=== PATIENT | female | born 1935 | race Caucasian/White ===

== ENCOUNTER → 2016-05-30 09:57 | Outpatient (CLI) | payer MEDICARE ==
[2016-03-15 06:54] VITALS: BMI 16.6
[~2016-05-30 09:57] MED LIST: ASPIRIN81 MG PO; CARAFATE1 G PO; EFFIENT10 MG PO; EXFORGE 10-3201 TAB PO; FAMOTIDINE10 MG PO; FERROUS SULFAT325 MG PO; LOPRESSOR25 MG PO; OMEPRAZOLE20 M1 PO; PLAVIX75 MG PO; VITAMIN B-1000 MCG/M IM; XALATAN 0.0052.5 ML EACH EYE; ZOCOR20 MG PO
== END | disposition home or self-care (01) ==
LOC: D.CT 09:57
DX: I65.29 Occlusion and stenosis of unspecified carotid artery (principal)

== ENCOUNTER 2017-02-07 07:10 | Day surgery (SDC) | payer MEDICARE ==
[~2017-02-07 07:10] MED LIST changes: +PROTONIX40 MG PO
[2017-02-07 08:22] VITALS: BP 136/48; BMI 16.6
[2017-02-07 08:23] LABS: BASOPHILS 0.5 % (0-2); HEMOGLOBIN 9.7 g/dL (12-16); IMMATURE GRANULOCYTES 0.2 % (0-5); LYMPHOCYTES 19.3 % (15-50); MCHC 32.3 g/dL (31.0-37.0); MCV 92.9 fL (80.0-100.0); MEAN PLATELET VOLUME 10.5 fL (7.4-10.4); PLATELET COUNT 239 10x3/uL (130-400); RBC 3.23 10x6/uL (4.00-5.40); RDW 15.6 % (11.5-14.5); WBC 6.1 10x3/uL (4.8-10.8)
[2017-02-07 08:33] LABS: ANION GAP 7.7 mmol/L (8-16); CALCIUM 9.3 mg/dL (8.5-10.1); CARBON DIOXIDE 30.5 mmol/L (21.0-32.0); POTASSIUM - SERUM 3.2 mmol/L (3.5-5.1)
[2017-02-07] MEDS ORDERED: BAYER CHEWABLE81 MG PO (08:49)
[2017-02-07] MEDS ORDERED: ERGOCALCIF50000 UNI1 PO (08:50)
--- NOTE | 2017-02-07 14:07 | NUR ---
1310 AWAKE & ALERT. DRESSED. GIVEN DISCHARGE INFORMATION INCLUDING: RX: NEXIUM. MED REC., SHEET LISTING NSAIDS TO AVOID FOR 14 DAYS, RTC APPT., & [facility] OUTPATIENT D/C INSTRUCTIONS. PT VOICED UNDERSTANDING. TO PRIVATE CAR PER WHEELCHAIR BY VOLUNTEER. HOME WITH MR. ALVAZHANG. Chastity ANDRADE R.N..
--- NOTE | 2017-02-10 09:49 | HP ---
PATIENT: TANK KASPER MEDICAL RECORD: [id number] ACCOUNT: [id number] LOCATION:[facility] : 33 ADMISSION DATE: 02/07/17 HISTORY AND PHYSICAL EXAMINATION CHIEF COMPLAINT: Anemia. HISTORY OF PRESENT ILLNESS: This patient has a history of gastric antral vascular ectasias. Also, a history of Becerril esophagus. Recently, she has have blood transfusion due to anemia, which appears to be blood loss anemia. My assumption is that she has gastric antral vascular ectasias that are bleeding and I would like to treat these again with the argon plasma hospital aides and assistants teacher. The risks, possible complications and alternatives to procedure were explained to the patient. She elects to proceed. The patient has epigastric abdominal pain. PAST MEDICAL AND SURGICAL HISTORY: Gastric antral vascular ectasias Becerril esophagus, history of coronary stents, history of CABG, history of irregular heart rate, abdominal aortic aneurysm, peripheral vascular disease, hypertension and COPD. Carotid endarterectomy. HOME MEDICATIONS: Metoprolol, Norvasc and aspirin, as well as Carafate. ALLERGIES: No known drug allergies. REVIEW OF SYSTEMS: Negative for CVA or seizures. Negative for diabetes or thyroid problems. Negative for hepatitis. The review of systems is negative other than as is described above. PHYSICAL EXAMINATION: GENERAL: The patient does not appear acutely ill. She does appear chronically ill. The entire physical examination was performed in the presence of a female nurse. HEAD: External ears appear normal. EYES: Extraocular movements are intact. NECK: Trachea is midline. CHEST: No intercostal retractions. PULMONARY: Nonlabored, no stridor. ABDOMEN: Nontender. IMPRESSION: 1. Gastric antral vascular ectasias. 2. Recurrent anemia requiring blood transfusions, acute blood loss. 3. History of Becerril esophagus that needs a surveillance. PLAN: EGD with biopsy. Treatment of gastric antral vascular ectasias with the argon plasma hospital aides and assistants teacher. TRANSINT:[id number] Voice Confirmation ID: [id number] DOCUMENT ID: [id number] HISTORY AND PHYSICAL [id number] TANK KASPER, LARON PICKERING at 0949 CC: [id number] DICTATION DATE: 02/07/17 1104 BULB WEEDER: 02/07/17 1131 [facility] 02/07/17 [facility] [address] [place] [address]
--- NOTE | 2017-02-10 09:49 | OP ---
PATIENT NAME: TANK KASPER MEDICAL RECORD: [id number] :34 LOCATION:D.OPS ADMISSION DATE: SURGEON: LARON ALFARO MD DATE OF OPERATION: 02/07/2017 PREOPERATIVE DIAGNOSES: 1. Acute blood loss anemia requiring transfusions. 2. History of gastric antral vascular ectasias (GAVE). 3. History of Becerril's esophagus in need of surveillance endoscopy. POSTOPERATIVE DIAGNOSES: 1. Acute blood loss anemia requiring transfusions. 2. Antral ulcer, likely the source of blood loss. 3. No regrowth of gastric antral vascular ectasias. 4. Improvement in the appearance of the Becerril's esophagus. PROCEDURE: 1. Esophagogastroduodenoscopy with antral and distal esophageal biopsies. 2. Hemorrhage control at the site of the antral ulcer, utilizing the argon plasma automotive electrical helper with esophageal setting in the pulsed mode. SURGEON: Laron Alfaro MD OFFICE SYSTEM ANALYST: None. BLOOD LOSS: Minimal. ANESTHESIA: General. COMPLICATIONS: None. OPERATIVE COURSE: The patient was conveyed to the operating room electively on 02/07/17. General anesthesia was induced by the anesthesia staff. A bite block was inserted. A gastroscope was inserted into the mouth. It was advanced easily into the hypopharynx. The esophagus was easily intubated as were the stomach and duodenum. Upon withdrawal, retroflexed and angulus views were obtained. Antral biopsies were obtained. Cold endoscopic biopsies in the area of Becerril's esophagus were obtained as well. I advanced the argon plasma automotive electrical helper. There was some bleeding from the biopsy sites within the antral ulcer. The bleeding was controlled utilizing the argon plasma automotive electrical helper with the esophageal setting in the pulsed mode. There was no further bleeding. The endoscope was withdrawn under direct vision. The patient was then extubated and conveyed to post-anesthesia care unit where she was in stable condition. She has been on Carafate, but she is now on a proton pump inhibitor. I will place her on Nexium. I will see her in the office in 2-3 weeks. TRANSINT:[id number] Voice Confirmation ID: [id number] DOCUMENT ID: [id number] OPERATIVE REPORT [id number] KITFLORIAN JUNIORLARON STALEY MD at 0949 CC: [id number] DICTATION DATE: 02/07/17 111 NAILHEAD SETTER: 02/07/17 1201 [facility] 02/07/17 [facility] [address] [facility] [place] [address]
== END 2017-02-07 13:10 | disposition home or self-care (01) ==
LOC: D.OPS 07:10 → D.PAN 09:00 → D.OPS 09:15 → D.PAN 09:15 → D.OPS 13:10
PROVIDERS: Surgery
DX: D64.9 Anemia, unspecified (principal); K31.819 Angiodysplasia of stomach and duodenum without bleeding; F17.200 Nicotine dependence, unspecified, uncomplicated; I10 Essential (primary) hypertension; J44.9 Chronic obstructive pulmonary disease, unspecified; Z95.1 Presence of aortocoronary bypass graft; Z01.812 Encounter for preprocedural laboratory examination